=== PATIENT | female | born 1985 | race Two or more races ===

== ENCOUNTER → 2022-09-06 | Day surgery (SDC) | payer OTHER ==
[~2022-09-06] VITALS: Ht 167.6 cm; Wt 103.9 kg
== END | disposition home or self-care (01) ==
LOC: ADM 09-04 09:30 → CIR.AMB 07:30
PROVIDERS: ATTEND Obstetrics & Gynecology
DX: N92.6 Irregular menstruation, unspecified (principal); R10.2 Pelvic and perineal pain; N84.0 Polyp of corpus uteri; D25.1 Intramural leiomyoma of uterus; Z20.822 Contact with and (suspected) exposure to COVID-19; Z88.6 Allergy status to analgesic agent; F17.210 Nicotine dependence, cigarettes, uncomplicated